=== PATIENT | female | born 2000 | race Caucasian/White ===

== ENCOUNTER 2020-07-07 23:37 | Emergency (ER) | payer OTHER ==
[~2020-07-07] VITALS: Ht 162.6 cm; Wt 56.8 kg
[2020-07-08 00:07] VITALS: TEMP 99.1
[2020-07-08] MEDS ORDERED: ZOLOFT 100MG100 MG PO (00:14)
[2020-07-08 01:44] VITALS: BP 120/78; PULSE 68
== END 2020-07-08 01:43 | disposition home or self-care (01) ==
LOC: COL.ER 23:37 → EDBD 23:39 → COL.ER 07-08 01:43
DX: S06.301A Unspecified focal traumatic brain injury with loss of consciousness of 30 minutes or less, initial encounter (principal); W22.03XA Walked into furniture, initial encounter